=== PATIENT | male | born 1965 | race Hispanic/Latino ===

== ENCOUNTER 2024-03-20 10:00 | Emergency (ER) | payer SELFPAY ==
[~2024-03-20] VITALS: Ht 170.2 cm; Wt 72.6 kg
[2024-03-20] MEDS ORDERED: IOPAMIDOL 370 MG/ML 100 ML INFUS..BTL INJ ONE (11:07)
[2024-03-20] MEDS ORDERED: IBUPROFEN600 MG PO (13:32)
[2024-03-20 13:34] VITALS: PULSE 66; RESP 18; TEMP 98.2; O2SAT 97
== END 2024-03-20 13:40 | disposition home or self-care (01) ==
LOC: FSED 10:18
DX: R10.32 Left lower quadrant pain (principal); K40.90 Unilateral inguinal hernia, without obstruction or gangrene, not specified as recurrent; K76.0 Fatty (change of) liver, not elsewhere classified
CPT/HCPCS: 74177; 80048; 81003; 85025; 99284; Q9967